=== PATIENT | male | born 1985 | race Caucasian/White ===

== ENCOUNTER 2017-01-02 20:12 | Observation (INO) | payer OTHER ==
[~2017-01-02] VITALS: Ht 188 cm; Wt 129.4 kg
[2017-01-02] MEDS ORDERED: SOD CHLORIDE 0.9% 500 ML IV STA (20:25)
[2017-01-02 20:34] LABS: BASOPHIL # 0.1 10^3/ul (0.0-0.1); BASOPHILS % 0.5 % (0.0-2.0); EOSINOPHILS # 0.2 10^3/ul (0.0-0.5); EOSINOPHILS % 1.5 % (0.0-7.0); HEMATOCRIT 46.5 % (42.0-52.0); HEMOGLOBIN 15.2 g/dl (14.0-18.0); LYMPHOCYTES # 4.1 10^3/ul (0.8-2.9); LYMPHOCYTES % 32.6 % (15.0-51.0); MEAN CORPUSCULAR HEMOGLOBIN 30.1 pg (29.0-33.0); MEAN CORPUSCULAR HGB CONC 32.7 g/dl (32.0-37.0); MEAN CORPUSCULAR VOLUME 92.1 fl (82.0-101.0); MONOCYTE # 0.8 10^3/ul (0.3-0.9); NEUTROPHIL # 7.4 10^3/ul (1.6-7.5); NEUTROPHILS % 58.9 % (39.0-77.0); PLATELET COUNT 348 10^3/UL (140-415); RED BLOOD COUNT 5.05 10^6/ul (4.70-6.10); RED CELL DISTRIBUTION WIDTH 12.2 % (11.5-14.5); WHITE BLOOD COUNT 12.6 10^3/ul (4.8-10.8)
[2017-01-02 20:47] LABS: INR 0.92; PROTIME 12.4 Sec (12.2-14.2)
[2017-01-02 20:48] LABS: PARTIAL THROMBOPLASTIN TIME 23.5 Sec (25.0-35.0)
[2017-01-02 20:54] LABS: CALCIUM 10.2 mg/dl (8.4-10.2); CREATININE 1.46 mg/dl (0.61-1.24); POTASSIUM 3.6 mmol/L (3.5-5.1)
[2017-01-02 21:05] LABS: TROPONIN-I 0.012 ng/ml (0.00-0.12)
--- NOTE | 2017-01-02 21:44 | ERA ---
ER Documentation Chief Complaint Date/Time DATE: 01/02/17 TIME: 21:38 Chief Complaint pt had a syncopal episode at 1930, with bradycardia , pt hit head HPI This is a 31-year-old male who had a myocardial infarction a month ago and had a stent placed in the proximal LAD in [place]. Patient was brought in for a syncopal episode. The patient states that he has had some chronic low back pain /sciatica that has been acting up for the past 4 days. The patient says he was having some pain when he got up to walk into another room in his house while he was walking he felt him have palpitations that he had a witnessed syncopal episode. The patient fell and hit his head on the wall and was unconscious for 1 minute. He woke up and felt back to normal. EMS came to pick him up and he had stable vital signs however shortly after loading him onto the gurney his heart rate slowly declined to 40 and he did not have a palpable blood pressure. Patient had an IV placed and fluids started in route his heart rate and blood pressure improved. Patient is on Plavix and aspirin and has a history of DVT in the past years ago. He said he never had any chest pain or shortness of breath, then or now ROS All systems reviewed and are negative except as per history of present illness. Allergies Allergies: Coded Allergies: No Known Allergy (Unverified , 01/02/17) PMhx/Soc History of Surgery: Yes (stent placement x 12/07) Hx Cardiac Disorders: Yes (htn, high cholesterol ) Hx Psychiatric Problems: No Hx Miscellaneous Medical Probl: No Hx Alcohol Use: No Hx Substance Use: Yes (medical marijuana) Hx Tobacco Use: No Smoking Status: Never smoker FmHx Family History: No coronary disease Physical Exam Vitals Vital Signs Date Time Temp Pulse Resp B/P Pulse Ox O2 Delivery O2 Flow Rate FiO2 01/02/17 20:22 65 16 122/66 99 Room Air 01/02/17 20:18 98.9 78 18 117/55 99 Physical Exam Const: Well-developed, well-nourished Head: Atraumatic, normocephalic Eyes: Normal Conjunctiva, PERRLA, EOMI, normal sclera, no nystagmus ENT: Normal External Ears, Nose and Mouth, moist mucus membranes. Neck: Full range of motion. No meningismus, no lymphadenopathy. Resp: Clear to auscultation bilaterally, no wheezing, rhonchi, rales Cardio: Regular rate and rhythm, heart rate 77, no murmurs, S1 S2 present Abd: Soft, non tender x 4, non distended. Normal bowel sounds, no guarding or rebound, no pulsitile abdominal masses or bruits Skin: No petechiae or rashes, no ecchymosis , no maculopapular rash Back: No midline or flank tenderness Ext: No cyanosis, or edema, FROM x 4, normal inspection, neurovascularly intact x 4 Neur: Awake and alert, STR 5/5 x 4, sensation intact x 4, no focal findings, cerebellum intact Psych: Normal Mood and Affect Result Diagram: 01/02/17201701/02/172017 Results 24 hrs Laboratory Tests Test 01/02/17 20:18 White Blood Count 12.610^3/ul Red Blood Count 5.0510^6/ul Hemoglobin 15.2g/dl Hematocrit 46.5% Mean Corpuscular Volume 92.1fl Mean Corpuscular Hemoglobin 30.1pg Mean Corpuscular Hemoglobin Concent 32.7g/dl Red Cell Distribution Width 12.2% Platelet Count 62024^3/UL Mean Platelet Volume 10.0fl Neutrophils % 58.9% Lymphocytes % 32.6% Monocytes % 6.0% Eosinophils % 1.5% Basophils % 0.5% Nucleated Red Blood Cells % 0.0/100WBC Neutrophils # 7.410^3/ul Lymphocytes # 4.110^3/ul Monocytes # 0.810^3/ul Eosinophils # 0.210^3/ul Basophils # 0.110^3/ul Nucleated Red Blood Cells # 0.010^3/ul Prothrombin Time 12.4Sec Prothrombin Time Ratio 1.0 INR International Normalized Ratio 0.92 Activated Partial Thromboplast Time 23.5Sec Sodium Level 135mmol/L Potassium Level 3.6mmol/L Chloride Level 103mmol/L Carbon Dioxide Level 28mmol/L Anion Gap 8 Blood Urea Nitrogen 21mg/dl Creatinine 1.46mg/dl Glucose Level 143mg/dl Calcium Level 10.2mg/dl Troponin I 0.012ng/ml Current Medications Medications (Trade) Dose Ordered Sig/Yanick Route PRN Reason Start Time Stop Time Status Last Admin Dose Admin Sodium Chloride (NS) 500 ml @ 500 mls/hr Q1H STAT IV 01/02/17 20:25 01/02/17 21:24 DC 01/02/17 20:38 Procedures/MDM EKG: Rate/Rhythm: Normal sinus rhythm, Q waves in lead V2 QRS, ST, QT: NORMAL [place], QRS, QT] Impression: Abnormal Patient's syncopal symptoms are unstable at this time and require inpatient workup. No evidence of PE or dissection at this time but occult ischemia or fatal dysrhythmia cannot be ruled out. PROCEDURE: CT Head without. CLINICAL INDICATION: Syncope. TECHNIQUE: The study was performed utilizing a multi-slice, multidetector CT scanner. Direct spiral 1 mm axial sections were obtained through the head without the use of intravenous contrast material. 1 or more of the following dose reduction techniques were utilized: Automated exposure control, adjustment of the mA and/or kV according to patient's size, iterative reconstruction technique. Coronal and sagittal reformations were obtained. The images were reviewed on a PACS workstation. RADIATION DOSE: CTDIvol: 42.0 mGy DLP: A 10.3 mGy-cm COMPARISON: No prior studies are available for comparison. FINDINGS: There is no intracranial hemorrhage, extra-axial fluid collection, mass lesion, midline shift or hydrocephalus. The ventricles, sulci and cisterns are within normal limits. The white matter is unremarkable. The wilson-white matter differentiation is preserved. The basal cisterns are patent. The midline structures are intact. The orbits, calvarium and extracranial soft tissues are normal in appearance. The visualized paranasal sinuses, mastoid air cells and middle ear cavities are normally aerated. IMPRESSION: 1. No acute intracranial abnormality. No intracranial hemorrhage, extra-axial fluid collection, mass lesion or hydrocephalous. RPTAT: HGAS .Merrill Edmond MD, Date Time Electronically viewed and signed by .Merrill Edmond MD, MD on 01/02/2017 22: 30 .S/ CC: JANESSA STEWART DO PROCEDURE: XR Chest. CLINICAL INDICATION: Seizure. TECHNIQUE: Single frontal view of the chest. COMPARISON: None. FINDINGS: Cardiomegaly with pulmonary vascular congestion. Atherosclerotic calcifications in the thoracic aorta. Transcutaneous cardiac pacing pad over the left chest. The lungs are clear. No signs of pleural fluid or pneumothorax are seen. The osseous structures and soft tissues are unremarkable. IMPRESSION: Pulmonary vascular congestion. RPTAT: [facility] Physician Ketan Date Time Electronically viewed and signed by Parviz Irving Physician on 01/02/2017 22:14 RS/ CC: JANESSA STEWART DO Patient's syncopal symptoms are unstable at this time and require inpatient workup. No evidence of PE or dissection at this time but occult ischemia or fatal dysrhythmia cannot be ruled out. Departure Diagnosis: Primary Impression: Syncope Qualified Code: R55 - Syncope, unspecified syncope type Condition: Stable JANESSA STEWART DO Jan 02, 2017 21:44
--- NOTE | 2017-01-02 22:14 | RADRPT ---
PROCEDURE: XR Chest. CLINICAL INDICATION: Seizure. TECHNIQUE: Single frontal view of the chest. COMPARISON: None. FINDINGS: Cardiomegaly with pulmonary vascular congestion. Atherosclerotic calcifications in the thoracic aort a. Transcutaneous cardiac pacing pad over the left chest. The lungs are clear. No signs of pleural f luid or pneumothorax are seen. The osseous structures and soft tissues are unremarkable. IMPRESSION: Pulmonary vascular congestion. RPTAT: [facility] Physician Ketan Date Time Electronically viewed and signed by Physician Ketan on 01/02/2017 22:14 RS/
--- NOTE | 2017-01-02 22:30 | RADRPT ---
PROCEDURE: CT Head without. CLINICAL INDICATION: Syncope. TECHNIQUE: The study was performed utilizing a multi-slice, multidetector CT scanner. Direct spira l 1 mm axial sections were obtained through the head without the use of intravenous contrast materia l. 1 or more of the following dose reduction techniques were utilized: Automated exposure control, adjustment of the mA and/or kV according to patient's size, iterative reconstruction technique. Co mehdi and sagittal reformations were obtained. The images were reviewed on a PACS workstation. RADIATION DOSE: CTDIvol: 42.0 mGyDLP: A 10.3 mGy-cm COMPARISON: No prior studies are available for comparison. FINDINGS: There is no intracranial hemorrhage, extra-axial fluid collection, mass lesion, midline shift or hyd rocephalus. The ventricles, sulci and cisterns are within normal limits. The white matter is unrem arkable. The wilson-white matter differentiation is preserved. The basal cisterns are patent. The m idline structures are intact. The orbits, calvarium and extracranial soft tissues are normal in [place]. The visualized paranasal sinuses, mastoid air cells and middle ear cavities are normally ae rated. IMPRESSION: 1. No acute intracranial abnormality. No intracranial hemorrhage, extra-axial fluid collection, ma ss lesion or hydrocephalous. RPTAT: HGAS .Merrill Edmond MD, MD Date Time Electronically viewed and signed by .Merrill Edmond MD, MD on 01/02/2017 22:30 .S/
[2017-01-02] MEDS ORDERED: ACETAMINOPHEN 325 MG TAB PO PRN (23:30)
[2017-01-02] MEDS ORDERED: ONDANSETRON 4 MG INJ IV PRN (23:30)
[2017-01-03] VITALS (11 sets, daily range): BP systolic 107–142; BP diastolic 55–78; PULSE 39–71; RESP 18–19; Ht 188 cm; Wt 129.4 kg
[2017-01-03] MEDS ORDERED: CARV3.1260 PO (00:18)
[2017-01-03] MEDS ORDERED: OMEG1CAP17 PO (00:18)
[2017-01-03] MEDS ORDERED: ASPI81TA3 PO (00:18)
[2017-01-03] MEDS ORDERED: CHOL200078 PO (00:18)
[2017-01-03] MEDS ORDERED: NIT4 SL (00:18)
[2017-01-03] MEDS ORDERED: LISI-313 PO (00:18)
[2017-01-03] MEDS ORDERED: FENO145T19 PO (00:18)
[2017-01-03] MEDS ORDERED: ATOR40TA68 PO (00:18)
[2017-01-03] MEDS ORDERED: CLOP75TA4 PO (00:18)
[2017-01-03] MEDS ORDERED: ONDANSETRON 4 MG INJ IV PRN (01:30)
[2017-01-03] MEDS ORDERED: ACETAMINOPHEN 325 MG TAB PO PRN (01:30)
[2017-01-03] MEDS ORDERED: SOD CHLORIDE 0.9% 1,000 ML IV ONE (01:30)
[2017-01-03] MEDS ORDERED: SOD CHLORIDE 0.9% 1,000 ML IV SCH (01:30)
[2017-01-03] MEDS: HYDROCODONE/APAP (5/325) TAB PO PRN ×2 (01:59→20:58)
[2017-01-03] MEDS ORDERED: IOHEXOL 100 ML ONE (02:11)
[2017-01-03] MEDS ORDERED: SOD CHLORIDE 0.9% 100 ML ONE (02:11)
[2017-01-03 03:12] LABS: BASOPHIL # 0.1 10^3/ul (0.0-0.1); BASOPHILS % 0.5 % (0.0-2.0); EOSINOPHILS # 0.2 10^3/ul (0.0-0.5); EOSINOPHILS % 1.4 % (0.0-7.0); HEMATOCRIT 41.8 % (42.0-52.0); HEMOGLOBIN 14.2 g/dl (14.0-18.0); LYMPHOCYTES # 3.4 10^3/ul (0.8-2.9); LYMPHOCYTES % 31.6 % (15.0-51.0); MEAN CORPUSCULAR HEMOGLOBIN 31.3 pg (29.0-33.0); MEAN CORPUSCULAR VOLUME 92.1 fl (82.0-101.0); MONOCYTE # 0.8 10^3/ul (0.3-0.9); MONOCYTES % 7.6 % (0.0-11.0); NEUTROPHIL # 6.2 10^3/ul (1.6-7.5); NEUTROPHILS % 58.5 % (39.0-77.0); PLATELET COUNT 316 10^3/UL (140-415); RED BLOOD COUNT 4.54 10^6/ul (4.70-6.10); WHITE BLOOD COUNT 10.6 10^3/ul (4.8-10.8)
--- NOTE | 2017-01-03 04:09 | RADRPT ---
PROCEDURE: CT angiogram of the chest with contrast. CLINICAL INDICATION: Chest pain. TECHNIQUE: CT angiogram of the chest was obtained using a multi-detector high-resolution CT. Con tiguous axial images were obtained during the dynamic injection of 90 cc of Omnipaque 350 intravenou s contrast. Coronal and sagittal reformatted images were obtained. 3-D reformatted images were als o obtained. Images were reviewed on a PACS workstation. One or more of the following dose reduction techniques were used: - Automated exposure control. - Adjustment of the mA and/or kV according to patient size. - Use of iterative reconstruction technique. Exam CTD/vol = 20.21 mGy. Total exam DLP = 989.03 mGy-cm. COMPARISON: None. FINDINGS: The main pulmonary artery followed to the segmental divisions are well opacified. There is no filli ng defect or evidence of pulmonary embolism. The heart is normal in size. There is no pericardial thickening or effusion. The aorta is diffusely small in size measuring 1.5 cm at the aortic arch an d 1.4 cm at the diaphragmatic hiatus. There is no evidence of aortic aneurysm or dissection. There is no evidence of chest wall mass. The visualized thyroid is unremarkable. There are no enla rged axillary lymph nodes. There are no enlarged mediastinal or hilar lymph nodes by CT criteria. There is no parenchymal nodule or consolidation. There is no pleural effusion. There is bilateral peribronchial thickening. Limited evaluation of the upper abdomen is unremarkable. IMPRESSION: No evidence of pulmonary embolism or aortic dissection. Congenitally small aorta. Bilateral peribronchial thickening compatible with bronchitis. .Wilfred Tony MD, MD Date Time Electronically viewed and signed by .Wilfred Tony MD, MD on 01/03/2017 04:09 .T/
[2017-01-03 04:11] LABS: TROPONIN-I 0.027 ng/ml (0.00-0.12)
[2017-01-03 04:21] LABS: CK-MB 0.81 ng/ml (0.0-2.4)
[2017-01-03 04:33] LABS: ALBUMIN 3.8 g/dl (3.3-4.9); ALBUMIN/GLOBULIN RATIO 1.26; CALCIUM 9.5 mg/dl (8.4-10.2); CREATININE 1.18 mg/dl (0.61-1.24); MAGNESIUM 1.9 mg/dl (1.7-2.5); POTASSIUM 4.1 mmol/L (3.5-5.1); TOTAL PROTEIN 6.8 g/dl (6.1-8.1)
[2017-01-03 05:03] LABS: THYROID STIMULATING HORMONE 2.05 MIU/L (0.465-4.680)
[2017-01-03 07:48] LABS: BARBITURATES Negative (NEGATIVE); BENZODIAZEPINES Negative (NEGATIVE); CANNABINOIDS Positive (NEGATIVE); COCAINE Negative (NEGATIVE); OPIATES Negative (NEGATIVE)
[2017-01-03] MEDS: CHOLECALCIFEROL 2,000 UNIT CAP PO SCH (08:14)
[2017-01-03] MEDS: ASPIRIN 81 MG TAB PO SCH (08:14)
[2017-01-03] MEDS: FENOFIBRATE 145 MG TAB PO SCH (08:15)
[2017-01-03] MEDS: FISH OIL 1,000 MG CAP PO SCH (08:15)
[2017-01-03 08:57] LABS: TROPONIN-I 0.02 ng/ml (0.00-0.12)
[2017-01-03 09:15] LABS: CK-MB 1.02 ng/ml (0.0-2.4)
--- NOTE | 2017-01-03 11:34 | CONS ---
Date/Time of Note Date/Time of Note DATE: 01/03/17 TIME: 11:20 Assessment/Plan Assessment/Plan Chief Complaint/Hosp Course 1) Syncope of uncertain etiology: DDX includes arrhythmia, vascular or neuro cause 2) CAD 3) coronary angioplasty status 4) Small aorta 5) Ex smoker 6) HLP 7) Sinusbradycardia Problems: Additional Assessment/Plan 1) telemetry 2) echo 3) carotid duplex 4) records from [place] 5) may need outpatient event recorder dw patient and family Consultation Date/Type/Reason Admit Date/Time Jan 02, 2017 at 23:24 Date of Consultation: Jan 03, 2017 Type of Consultation: cv Reason for Consultation syncope Referring Provider: KOBI IYER Hx of Present Illness patient yesterday after stretching his back and getting up, became lightheaded and dizzy and went to the ground. witnessed to have convulsions while on ground. also experienced near syncope in the ED with bradycardia in the 40s and hypotension, no convulsions described this time. patient missed asa and statin dose yesterday. denies chest pain, exertional symptoms or sob. Respiratory: no complaints Cardiovascular: no complaints Gastrointestinal: no complaints Musculoskeletal: no complaints Skin: no complaints Neurologic: syncope Endocrine: no complaints Past Medical History Medical History: coronary artery disease, high cholesterol Past Surgical History Past Surgical Hx: angioplasty Family History Significant Family History: hypertension Social History Smoking Status: Former smoker Exam/Review of Systems Vital Signs Vitals Vital Signs Date Time Temp Pulse Resp B/P Pulse Ox O2 Delivery O2 Flow Rate FiO2 01/03/17 08:46 51 01/03/17 06:16 98.3 19 116/64 99 108/55 107/59 01/03/17 00:56 Room Air Intake and Output 01/02/17 01/02/17 01/03/17 15:00 23:00 07:00 Intake Total 1250 ml Balance 1250 ml Exam Constitutional: alert, oriented Head: atraumatic, normocephalic ENMT: nl external ears & nose Neck: supple Respiratory: clear to auscultation Cardiovascular: regular rate and rhythm Gastrointestinal: soft Musculoskeletal: nl extremities to inspection Extremities: normal pulses Neurological: YARN EXAMINER SKEINS II-XII intact Results Result Diagram: 01/03/17 0303 01/03/17 0303 Results 24 hrs Laboratory Tests Test 01/02/17 20:18 01/03/17 01:10 01/03/17 02:50 01/03/17 03:03 White Blood Count 12.6 H 10.6 Red Blood Count 5.05 4.54 L Hemoglobin 15.2 14.2 Hematocrit 46.5 41.8 L Mean Corpuscular Volume 92.1 92.1 Mean Corpuscular Hemoglobin 30.1 31.3 Mean Corpuscular Hemoglobin Concent 32.7 34.0 Red Cell Distribution Width 12.2 12.0 Platelet Count 348 316 Mean Platelet Volume 10.0 10.0 Neutrophils % 58.9 58.5 Lymphocytes % 32.6 31.6 Monocytes % 6.0 7.6 Eosinophils % 1.5 1.4 Basophils % 0.5 0.5 Nucleated Red Blood Cells % 0.0 0.0 Neutrophils # 7.4 6.2 Lymphocytes # 4.1 H 3.4 H Monocytes # 0.8 0.8 Eosinophils # 0.2 0.2 Basophils # 0.1 0.1 Nucleated Red Blood Cells # 0.0 0.0 Prothrombin Time 12.4 Prothrombin Time Ratio 1.0 INR International Normalized Ratio 0.92 Activated Partial Thromboplast Time 23.5 L Sodium Level 135 133 L Potassium Level 3.6 4.1 Chloride Level 103 109 Carbon Dioxide Level 28 23 Anion Gap 8 5 L Blood Urea Nitrogen 21 H 18 Creatinine 1.46 H 1.18 Glucose Level 143 101 # Calcium Level 10.2 9.5 Troponin I 0.012 0.027 B-Type Natriuretic Peptide 402 H Urine Opiates Screen Negative Urine Barbiturates Negative Urine Amphetamines Screen Negative Urine Benzodiazepines Screen Negative Urine Cocaine Screen Negative Urine Cannabinoids Positive Magnesium Level 1.9 Total Bilirubin 0.0 L Direct Bilirubin 0.00 Indirect Bilirubin 0.0 Aspartate Amino Transf (AST/SGOT) 23 Alanine Aminotransferase (ALT/SGPT) 30 Alkaline Phosphatase 48 Creatine Kinase 108 Creatine Kinase Index 0.8 Creatinine Kinase MB (Mass) 0.81 Total Protein 6.8 Albumin 3.8 Globulin 3.00 Albumin/Globulin Ratio 1.26 Thyroid Stimulating Hormone (TSH) 2.050 Free Thyroxine 1.33 Test 01/03/17 07:57 Creatine Kinase 100 Creatine Kinase Index 1.0 Creatinine Kinase MB (Mass) 1.02 Troponin I 0.020 Imaging Free Text/Dictation EKG: Sinusrhythm, no signficant changes TEle:Sinusbrady w myke of 41 without symptoms Medications Medications Current Medications Acetaminophen/ Hydrocodone Bitart ([place] (5/325)) 1 tab Q6H PRN PO PAIN Last administered on 01/03/17 01:59; Admin Dose 1 TAB; Start 01/03/17 at 01:30 Acetaminophen (Tylenol Tab) 650 mg Q6H PRN PO PAIN AND OR ELEVATED TEMP; Start 01/03/17 at 01:30 Ondansetron HCl (Zofran Inj) 4 mg Q6H PRN IV NAUSEA AND/OR VOMITING; Start at 01:30 Aspirin (Aspirin) 81 mg DAILY PO Last administered on 01/03/17 08:14; Admin Dose 81 MG; Start 01/03/17 at 09:00 Atorvastatin Calcium (Lipitor) 40 mg HS PO ; Start 01/03/17 at 21:00 Cholecalciferol (Vitamin D) 2,000 unit DAILY PO Last administered on 08:14; Admin Dose 2,000 UNIT; Start 01/03/17 at 09:00 Fenofibrate (Tricor) 145 mg DAILY PO Last administered on 01/03/17 08:15; Admin Dose 145 MG; Start 01/03/17 at 09:00 Fish Oil (Fish Oil) 1,000 mg DAILY PO Last administered on 01/03/17 08:15; Admin Dose 1,000 MG; Start 01/03/17 at 09:00 Clopidogrel Bisulfate (plaVIX) 75 mg DAILY PO ; Start 01/03/17 at 11:30; Status KEZIA SALDANA MD Jan 03, 2017 11:31
[2017-01-03] MEDS: CLOPIDOGREL 75 MG TAB PO SCH (12:05)
--- NOTE | 2017-01-03 12:11 | RADRPT ---
Echocardiogram Report Patient Name: JESSICA SHAY Gender: Male Date: 1985 Study Date: 03-Jan-2017 Life Educator: KARINA Location: I Ref. Physician: ALEXUS IYER Quality: Technically Difficult Study Procedures: Transthoracic echocardiogram with 2D, M-Mode, and Doppler examination, no subcostal images. Indications: Syncope, history of stent. 2D/M Mode Doppler Measurement Value Normal Ranges Measurement Value Normal Ranges AoR Diam MM 2.7 cm AV Peak Nick 1.1 m/sec ACS MM 2.2 cm AV Peak PG 4.4 mmHg LVIDd 2D 4.7 3.5 - 5.6 cm LVOT Peak Nick 1.0 m/sec LVIDs 2D 3.1 2.1 - 4.1 cm LVOT Peak PG 3.9 mmHg LVPWd 2D 1.4 0.6 - 1.1 cm MV E Peak Nick 0.9 m/sec IVSd 2D 1.3 0.6 - 1.1 cm MV A Peak Nick 0.3 m/sec EDV 2D 104.0 cm3 MV E/A 3.3 ESV 2D 28.7 cm3 MV Decel Time 220 msec LA Dimen 2D 3.8 2.3 - 4.0 cm MV Decel [place] 4 MV E/A 3.3 PV Peak Nick 1.0 m/sec PV Peak PG 4.0 mmHg Findings Left Ventricle: Normal left ventricular systolic function. Normal left ventricular cavity size. Mild concentric left ventricular hypertrophy. Ejection fraction is visually estimated at 65 %. Tissue Doppler/Mitral Doppler indices are within normal limits. E/E`=6. Right Ventricle: Normal right ventricular size. Left Atrium: The left atrium is normal in size. Right Atrium: The right atrium is normal in size. Atrial Septum: Normal atrial septum. Mitral Valve: Normal appearance of the mitral valve. No mitral valve regurgitation is seen. Aortic Valve: Normal appearance of the aortic valve. No significant aortic stenosis or insufficiency. Tricuspid Valve: Normal appearance of the tricuspid valve. No evidence of tricuspid regurgitation. Pulmonic Valve: Normal pulmonic valve appearance. No evidence of pulmonic regurgitation. Pericardium: Normal pericardium with no significant pericardial effusion. No pleural effusion noted. Aorta: Normal aortic root. IVC: The IVC is not well visualized. Pulmonary Artery: Normal pulmonary artery size. Conclusions 1.Normal left ventricular systolic function. Normal left ventricular cavity size. Mild concentric left ventricular hypertrophy. Ejection fraction is visually estimated at 65 %. Tissue Doppler/Mitral Doppler indices are within normal limits. E/E`=6. 2.Normal appearance of the mitral valve. No mitral valve regurgitation is seen. 3.Normal appearance of the aortic valve. No significant aortic stenosis or insufficiency. 4.Normal appearance of the tricuspid valve. No evidence of tricuspid regurgitation. 5.Normal pulmonic valve appearance. No evidence of pulmonic regurgitation. 6.The IVC is not well visualized. Electronically Signed By: Shadi Palafox 03-Jan-2017 12:10:30 -0700 Patient Name: JESSICA SHAY Study Date: 03-Jan-2017 [id number]
--- NOTE | 2017-01-03 13:02 | HP ---
Date/Time of Note Date/Time of Note DATE: 01/03/17 TIME: 13:01 Assessment/Plan VTE Prophylaxis VTE Prophylaxis Intervention: SCD's Lines/Catheters IV Catheter Type (from [facility]): Saline Lock Urinary Cath still in place: No Assessment/Plan Assessment/Plan 31-year-old male with: 1. Syncopal episode, unclear etiology, there is also reported of possible seizure activity. Patient has no previous history of seizures but has been reporting episodes of palpitations that requires him to almost vagal from what he is describing for the symptoms to go away and also episodes where he skips beats as he describes it. He is on telemetry being monitored. Cardiology is following. 2D echocardiogram within normal. Electrolytes stable. Cardiac enzymes negative. We are holding all beta-blockers and blood pressure medications. Orthostatics negative this morning. CTA chest negative for pulmonary embolus or dissection. 2. Episode of bradycardia with heart rate down to 30s, discontinue beta blockers. Continue to observe. Thyroid function testing within normal. Carotid ultrasound pending. 3. Coronary artery disease, status post stent placement approximately 5 weeks ago. Patient back on aspirin and Plavix. 4. Hyperlipidemia: Continue statin therapy Prophylaxis: SCDs to lower extremity for DVT prophylaxis, Pepcid for GI prophylaxis Disposition: Monitoring for any arrhythmias, replete electrolytes, cardiology following. HPI/ROS Admit Date/Time Admit Date/Time Jan 02, 2017 at 23:24 Hx of Present Illness Chief complaint: Syncopal episode History of presenting illness: This is a 31-year-old male, with coronary artery disease, early onset, status post stenting of coronary lesion 11/25/16 in [place], compliant with medication, reports episodes of palpitations but also feels that he is skipping a beat, had a syncopal episode yesterday while he was stretching and was brought to the emergency department by family. According to the family after the patient lost consciousness he had generalized shaking that seems to be resembling seizures, this lasted for 10 seconds, when the patient came to he had no recollection of the event but did recognize his surroundings. No bowel or bladder incontinence. He denies headache, chest pains, he has been having nausea in the morning on and off. He denies diaphoresis or shortness of breath. He has been complaining of severe back pain that has been worsening. He was noted to have bradycardic episode with heart rate down to 39, he is blood pressure was maintained throughout here but apparently when he dropped to heart rates of 40s his blood pressure did drop at home and it is around the time he lost consciousness. All his blood pressure meds and beta blockers have been held on admission. 2D echocardiogram is ordered. He is ruled out for acute coronary syndrome, cardiology evaluation ongoing, carotid Dopplers ordered. Due to severe pain in his back with radiation down his lower extremity consistent with sciatica, MRI of the thoracic and lumbar spine has been ordered. Patient is admitted to telemetry close monitoring. CAT scan of the brain is negative as the patient may have hit his head when he fell. Will order MRI brain and EEG if needed. So far no episode of seizure reported or witnessed during the hospitalization ROS Constitutional: nausea Eyes: no complaints ENT: no complaints Respiratory: no complaints Cardiovascular: other (Arrhythmias, patient reports that sometimes he feels like his heart is skipping beats), palpitations Gastrointestinal: no complaints Genitourinary: no complaints Musculoskeletal: no complaints Skin: no complaints Neurologic: syncope Endocrine: no complaints Lymphatic: no complaints PMH/Family/Social Past Medical History Medical History: coronary artery disease, high cholesterol Past Surgical History Past Surgical Hx: angioplasty Social History Alcohol Use: none Smoking Status: Former smoker Drug Use: marijuana (Daily user and used to be heavy user) Exam/Review of Systems Vital Signs Vitals Vital Signs Date Time Temp Pulse Resp B/P Pulse Ox O2 Delivery O2 Flow Rate FiO2 01/03/17 12:44 55 01/03/17 11:27 98.1 18 121/72 98 01/03/17 00:56 Room Air Intake and Output 01/02/17 01/02/17 01/03/17 15:00 23:00 07:00 Intake Total 1250 ml Balance 1250 ml Exam Constitutional: alert, oriented, other (Obese), well developed Respiratory: clear to auscultation, normal air movement Cardiovascular: nl pulses, regular rate and rhythm Gastrointestinal: non-tender, soft Musculoskeletal: nl extremities to inspection Extremities: normal pulses, other (No edema, clubbing or cyanosis) Neurological: SACK CLEANER II-XII intact, nl mental status, nl speech, nl strength Labs Result Diagram: 01/03/1730201/03/17302 Medications Medications Current Medications Acetaminophen/ Hydrocodone Bitart (Stephan (5/325)) 1 tab Q6H PRN PO PAIN Last administered on 01/03/17 01:59; Admin Dose 1 TAB; Start 01/03/17 at 01:30 Acetaminophen (Tylenol Tab) 650 mg Q6H PRN PO PAIN AND OR ELEVATED TEMP; Start 01/03/17 at 01:30 Ondansetron HCl (Zofran Inj) 4 mg Q6H PRN IV NAUSEA AND/OR VOMITING; Start at 01:30 Aspirin (Aspirin) 81 mg DAILY PO Last administered on 01/03/17 08:14; Admin Dose 81 MG; Start 01/03/17 at 09:00 Atorvastatin Calcium (Lipitor) 40 mg HS PO ; Start 01/03/17 at 21:00 Cholecalciferol (Vitamin D) 2,000 unit DAILY PO Last administered on 08:14; Admin Dose 2,000 UNIT; Start 01/03/17 at 09:00 Fenofibrate (Tricor) 145 mg DAILY PO Last administered on 01/03/17 08:15; Admin Dose 145 MG; Start 01/03/17 at 09:00 Fish Oil (Fish Oil) 1,000 mg DAILY PO Last administered on 01/03/17 08:15; Admin Dose 1,000 MG; Start 01/03/17 at 09:00 Clopidogrel Bisulfate (plaVIX) 75 mg DAILY PO Last administered on 01/03/17 12:05; Admin Dose 75 MG; Start 01/03/17 at 11:30 Procedures Procedures PROCEDURE: CT angiogram of the chest with contrast. CLINICAL INDICATION: Chest pain. TECHNIQUE: CT angiogram of the chest was obtained using a multi-detector high -resolution CT. Contiguous axial images were obtained during the dynamic injection of 90 cc of Omnipaque 350 intravenous contrast. Coronal and sagittal reformatted images were obtained. 3-D reformatted images were also obtained. Images were reviewed on a PACS workstation. One or more of the following dose reduction techniques were used: - Automated exposure control. - Adjustment of the mA and/or kV according to patient size. - Use of iterative reconstruction technique. Exam CTD/vol = 20.21 mGy. Total exam DLP = 989.03 mGy-cm. COMPARISON: None. FINDINGS: The main pulmonary artery followed to the segmental divisions are well opacified. There is no filling defect or evidence of pulmonary embolism. The heart is normal in size. There is no pericardial thickening or effusion. The aorta is diffusely small in size measuring 1.5 cm at the aortic arch and 1.4 cm at the diaphragmatic hiatus. There is no evidence of aortic aneurysm or dissection. There is no evidence of chest wall mass. The visualized thyroid is unremarkable. There are no enlarged axillary lymph nodes. There are no enlarged mediastinal or hilar lymph nodes by CT criteria. There is no parenchymal nodule or consolidation. There is no pleural effusion. There is bilateral peribronchial thickening. Limited evaluation of the upper abdomen is unremarkable. IMPRESSION: No evidence of pulmonary embolism or aortic dissection. Congenitally small aorta. Bilateral peribronchial thickening compatible with bronchitis. .Wilfred Tony MD, Date Time Electronically viewed and signed by .Wilfred Tony MD, MD on 01/03/2017 04:09 PROCEDURE: CT Head without. CLINICAL INDICATION: Syncope. TECHNIQUE: The study was performed utilizing a multi-slice, multidetector CT scanner. Direct spiral 1 mm axial sections were obtained through the head without the use of intravenous contrast material. 1 or more of the following dose reduction techniques were utilized: Automated exposure control, adjustment of the mA and/or kV according to patient's size, iterative reconstruction technique. Coronal and sagittal reformations were obtained. The images were reviewed on a PACS workstation. RADIATION DOSE: CTDIvol: 42.0 mGy DLP: A 10.3 mGy-cm COMPARISON: No prior studies are available for comparison. FINDINGS: There is no intracranial hemorrhage, extra-axial fluid collection, mass lesion, midline shift or hydrocephalus. The ventricles, sulci and cisterns are within normal limits. The white matter is unremarkable. The wilson-white matter differentiation is preserved. The basal cisterns are patent. The midline structures are intact. The orbits, calvarium and extracranial soft tissues are normal in appearance. The visualized paranasal sinuses, mastoid air cells and middle ear cavities are normally aerated. IMPRESSION: 1. No acute intracranial abnormality. No intracranial hemorrhage, extra-axial fluid collection, mass lesion or hydrocephalous. RPTAT: HGAS .Merrill Edmond MD, MD Date Time Electronically viewed and signed by .Merrill Edmond MD, MD on 01/02/2017 22: 30 PROCEDURE: XR Chest. CLINICAL INDICATION: Seizure. TECHNIQUE: Single frontal view of the chest. COMPARISON: None. FINDINGS: Cardiomegaly with pulmonary vascular congestion. Atherosclerotic calcifications in the thoracic aorta. Transcutaneous cardiac pacing pad over the left chest. The lungs are clear. No signs of pleural fluid or pneumothorax are seen. The osseous structures and soft tissues are unremarkable. IMPRESSION: Pulmonary vascular congestion. RPTAT: [facility] Physician Ketan Date Time Electronically viewed and signed by Physician Ketan on 01/02/2017 22:14 LICHA/ KOBI IYER Jan 03, 2017 13:02
--- NOTE | 2017-01-03 13:28 | RADRPT ---
PROCEDURE: Carotid ultrasound CLINICAL INDICATION: Syncope, carotid bruits TECHNIQUE: Su scale, color doppler, spectral doppler ultrasound of the bilateral carotid and claudine tebral arteries. This study indirectly references the measurement of the distal ICA diameter as the denominator for s tenosis measurement. Validated velocity measurements with angiographic measurements, velocity criter ia are extrapolated from diameter data as defined by: *Cartoid artery stenosis: su-scale and Doppl er US diagnosis. Society of Radiologists in Ultrasound Consensus Conference. Radiology 2003; 229: 34 0-346. SRU Consensus Conference Criteria for the Diagnosis of Carotid Artery Stenosis* Degree of Stenosis, % ICA PSV, cm/sec Plaque Estimate, % ICA/CCA PSV Ratio Normal <125 None <2.0 <50 <125 <50 <2.0 50 69 125-230 >50 2.0-4.0 >70 but less than near occlusion >230 >50 <4.0 Near occlusion High, low, or undetectable Visible Variable Total occlusion Undetectable Visible, no detectable lumen Not applicable COMPARISON: No prior studies are available for comparison. FINDINGS: Location Right CCA72 - 158 cm/sec Prox ICA 51 cm/sec Mid ICA77 cm/sec Dist ICA69 cm/sec TMQ676 cm/sec ICA/CCA1.1 Left FBT568 - 159 cm/sec Prox ICA 77 cm/sec Mid ICA77 cm/sec Dist ICA55 cm/sec UIK530 cm/sec ICA/CCA0.7 Plaque burden: No significant plaque is seen. Antegrade flow is seen within the vertebral arteries bilaterally. IMPRESSION: No evidence of a hemodynamically significant carotid stenosis. RPTAT: AADD .Bereket Cuevas MD, Date Time Electronically viewed and signed by .Bereket Cuevas MD, MD on 01/03/2017 13:28 .B/
--- NOTE | 2017-01-03 17:42 | RADRPT ---
PROCEDURE: MRI thoracic spine without contrast CLINICAL INDICATION: Back pain, primarily right-sided. TECHNIQUE: An MRI of the thoracic spine was performed on a [employer] 3 hsarmin scanner utilizing the follow ing sequences: Sagittal and axial T1 weighted, sagittal and axial T2 weighted, coronal T2-weighted, and sagittal T2-weighted with fat saturation. COMPARISON: None. FINDINGS: There is a normal kyphosis of the thoracic spine. No vertebral body subluxation is seen. The verte bral bodies are normal in height and signal intensity. The thoracic cord is normal in signal intens ity in caliber at all levels. At T3-4, there is mild disc space narrowing. A small right paracentral disc bulges present, measurin g less than 2 mm. The central canal and foramina appear adequately patent. There is mild facet arthr opathy. At T4-5, there is mild disc space narrowing. A right paracentral disc protrusion is present, measuri ng 3 mm. This minimally effaces the thecal sac without central stenosis. Mild cord displacement is s een. There is mild right and mild to moderate left facet arthropathy. The foramen remain adequately patent. At T5-6, the disc is grossly normal in height but diminished in T2-weighted signal intensity. No sig nificant disc bulge protrusion is seen. There is mild bilateral facet arthropathy without central st enosis or foraminal narrowing. At T6-7, the disc is grossly normal in height and signal intensity. There is a small posterior disc bulge without central stenosis. Mild to moderate facet arthropathy is evident, which minimally narro ws the foramen. At T7-8, there is mild discogenic disease. A small disc bulge is present. Mild to moderate facet art hropathy is noted. The central canal and foramen are adequately patent. At T8-9, the disc is mildly decreased in height and diffusely decreased in T2-weighted signal intens ity. There is a small disc bulge without central stenosis. Mild to moderate facet arthropathy is see n without significant foraminal stenosis. At T9-10 and T10-11, the discs are normal in appearance. The central canal is adequately patent at b oth levels. There is evidence of mild facet arthropathy at T9-10 and mild to moderate at T10-11. No significant foraminal narrowing is seen. At T11-12, the disc is normal in height and grossly normal in signal intensity. Mild bulging of the posterior annulus together with mild to moderate facet arthropathy results in mild central stenosis. There is minimal left foraminal narrowing. At T12-L1, the disc is grossly normal in height and signal intensity. No significant disk bulge or protrusion is seen. The central canal and foramina are adequately patent. IMPRESSION: 1. Multilevel mild discogenic disease. Multilevel small posterior disc bulges are present as outlin ed above. 2. At T4-5, there is a right paracentral disc protrusion minimally displacing the cord without sign ificant central canal stenosis. 3. At T11-12, there is mild central stenosis related primarily to facet arthropathy. 4. Multilevel facet arthropathy, which results in minimal foraminal narrowing at several levels as described above. RPTAT: HJAH .Bettye Henry MD, Date Time Electronically viewed and signed by .Bettye Henry MD, on 01/03/2017 17:42 .H/
--- NOTE | 2017-01-03 17:47 | RADRPT ---
PROCEDURE: MRI lumbar spine CLINICAL INDICATION: Back pain. TECHNIQUE: An MRI of the lumbar spine was performed on a GE 3 sharmin scanner utilizing the followin g sequences: Sagittal T1 weighted, sagittal and dual echo axial T2 weighted, and sagittal T2 weighte d with fat saturation. COMPARISON: None. FINDINGS: There is a normal lordosis of the lumbar spine. No vertebral body subluxation is evident. The verteb ral bodies are normal in height and signal intensity. The conus medullaris is visible at the upper L1 level, and is normal in appearance. L1 - L2: The disc is normal in height and grossly normal in T2-weighted signal intensity. There is a small Schmorl's node. No significant disc bulge or protrusion is seen. The central canal and joshua edwin are adequately patent. L2 - L3: The disk is normal in appearance. Small Schmorl's nodes are identified. The central canal and foramina are adequately patent. L3 - L4: The disk is normal in appearance. Small Schmorl's nodes are identified. The central canal and foramina are adequately patent. L4 - L5: The disk is normal in appearance. The central canal and foramina are adequately patent. L5 - S1: There is moderate disc space narrowing and decreased T2-weighted signal intensity within t he disc. There is a posterior disc bulge measuring approximately 2.5 mm. There is no significant the mercedes sac effacement. Mild facet arthropathy is identified. The central canal and foramina are adequat prudence patent. IMPRESSION: 1. Moderate discogenic disease at L5-S1 with a small disc bulge but no central stenosis or foramina l narrowing. 2. Mild facet arthropathy bilaterally at L5-S1 without foraminal stenosis. 3. Multilevel small Schmorl's node formation. RPTAT: HJAH .Bettye Henry MD, MD Date Time Electronically viewed and signed by .Bettye Henry MD, MD on 01/03/2017 17:47 .H/
[2017-01-03] MEDS: ATORVASTATIN 40 MG TAB PO SCH (20:57)
[2017-01-04] VITALS (11 sets, daily range): BP systolic 112–134; BP diastolic 65–86; PULSE 45–93; RESP 16–20
[2017-01-04 07:18] LABS: CALCIUM 9.3 mg/dl (8.4-10.2); CREATININE 1.36 mg/dl (0.61-1.24); POTASSIUM 4.1 mmol/L (3.5-5.1)
[2017-01-04 08:03] LABS: PHOSPHORUS 4.1 mg/dl (2.5-4.9)
[2017-01-04] MEDS: FENOFIBRATE 145 MG TAB PO SCH (09:24)
[2017-01-04] MEDS: CHOLECALCIFEROL 2,000 UNIT CAP PO SCH (09:24)
[2017-01-04] MEDS: FISH OIL 1,000 MG CAP PO SCH (09:24)
[2017-01-04] MEDS: ASPIRIN 81 MG TAB PO SCH (09:25)
[2017-01-04] MEDS: CLOPIDOGREL 75 MG TAB PO SCH (09:25)
[2017-01-04] MEDS: SOD CHLORIDE 0.9% 1,000 ML IV SCH ×3 (13:30→14:14)
--- NOTE | 2017-01-04 13:35 | PN ---
Date/Time of Note Date/Time of Note DATE: 01/04/17 TIME: 13:12 Assessment/Plan VTE Prophylaxis VTE Prophylaxis Intervention: ambulation, SCD's Lines/Catheters IV Catheter Type (from [facility]): Saline Lock Urinary Cath still in place: No Assessment/Plan Assessment/Plan 31-year-old male with: 1. Syncopal episode, unclear etiology, there is also reported of possible seizure activity. Patient has no previous history of seizures but has been reporting episodes of palpitations that requires him to almost vagal from what he is describing for the symptoms to go away and also episodes where he skips beats as he describes it. He is on telemetry being monitored. Cardiology is following. 2D echocardiogram within normal. Electrolytes stable. Cardiac enzymes negative. We are holding all beta-blockers and blood pressure medications. Orthostatics negative last night. CTA chest negative for pulmonary embolus or dissection. CTA head and Neck and MRI brain pending to complete neurology workup. Will do EEG if needed 2. Episode of bradycardia with heart rate down to 30s, discontinue beta blockers. Continue to observe. Thyroid function testing within normal. Carotid ultrasound within normal limits. 3. Coronary artery disease, status post stent placement approximately 5 weeks ago. Continue aspirin and Plavix. 4. Hyperlipidemia: Continue statin therapy Prophylaxis: SCDs to lower extremity for DVT prophylaxis, Pepcid for GI prophylaxis Disposition: Monitoring for any arrhythmias, replete electrolytes, complete neurology workup, if any syncopal episode in house or witnessed seizures, will have neurology involved inpatient otherwise referral outpatient. Likely to need event monitoring as an outpatient if no etiology found to this episode of syncope while inpatient. Subjective 24 Hr Interval Summary Free Text/Dictation Patient doing well this morning, overnight he had an episode of lightheadedness was feeling palpitations and some pressure in his chest, telemetry monitoring and EKG along with vital signs were all within normal. The episode resolved this morning is back to baseline. So far cardiac and neurological workup were negative. He also had MRI of his brain with multiple level disc disease but no acute findings. We will complete the neurological workup today with MRI brain CT angiogram head and neck. Then patient can be referred to neurology as an outpatient if needed and or psychiatry. It is suspected that he may have anxiety disorder. Patient is also a regular and moderate to heavy marijuana user. Exam/Review of Systems Vital Signs Vitals Vital Signs Date Time Temp Pulse Resp B/P Pulse Ox O2 Delivery O2 Flow Rate FiO2 01/04/17 12:21 93 01/04/17 11:22 97.9 18 122/76 97 01/03/17 00:56 Room Air Intake and Output 01/03/17 01/03/17 01/04/17 15:00 23:00 07:00 Intake Total 1050 ml 200 ml Balance 1050 ml 200 ml Exam Constitutional: alert, oriented, well developed Respiratory: clear to auscultation, normal air movement Cardiovascular: nl pulses, regular rate and rhythm Gastrointestinal: non-tender, soft Musculoskeletal: nl extremities to inspection Extremities: normal pulses Neurological: MEDICAL ASSISTANT PER DIEM II-XII intact, nl mental status, nl speech, nl strength Results Result Diagram: 01/03/17 0303 01/04/17 0557 Results 24 hrs Laboratory Tests Test 01/04/17 05:57 Sodium Level 143 Potassium Level 4.1 Chloride Level 108 Carbon Dioxide Level 26 Anion Gap 13 # Blood Urea Nitrogen 17 Creatinine 1.36 H Glucose Level 88 Calcium Level 9.3 Phosphorus Level 4.1 Magnesium Level 2.0 Imaging Free Text/Dictation Echocardiogram Report Patient Name: JESSICA SHAY Gender: Male Date: 1985 Study Date: 03-Jan-2017 Estimating Engineer: KARINA Location: I Ref. Physician: ALEXUS IYER Quality: Technically Difficult Study Procedures: Transthoracic echocardiogram with 2D, M-Mode, and Doppler examination, no subcostal images. Indications: Syncope, history of stent. 2D/M Mode Doppler Measurement Value Normal Ranges Measurement Value Normal Ranges AoR Diam MM 2.7 cm AV Peak Nick 1.1 m/sec ACS MM 2.2 cm AV Peak PG 4.4 mmHg LVIDd 2D 4.7 3.5 - 5.6 cm LVOT Peak Nick 1.0 m/sec LVIDs 2D 3.1 2.1 - 4.1 cm LVOT Peak PG 3.9 mmHg LVPWd 2D 1.4 0.6 - 1.1 cm MV E Peak Nick 0.9 m/sec IVSd 2D 1.3 0.6 - 1.1 cm MV A Peak Nick 0.3 m/sec EDV 2D 104.0 cm3 MV E/A 3.3 ESV 2D 28.7 cm3 MV Decel Time 220 msec LA Dimen 2D 3.8 2.3 - 4.0 cm MV Decel [place] 4 MV E/A 3.3 PV Peak Nick 1.0 m/sec PV Peak PG 4.0 mmHg Findings Left Ventricle: Normal left ventricular systolic function. Normal left ventricular cavity size. Mild concentric left ventricular hypertrophy. Ejection fraction is visually estimated at 65 %. Tissue Doppler/Mitral Doppler indices are within normal limits. E/E`=6. Right Ventricle: Normal right ventricular size. Left Atrium: The left atrium is normal in size. Right Atrium: The right atrium is normal in size. Atrial Septum: Normal atrial septum. Mitral Valve: Normal appearance of the mitral valve. No mitral valve regurgitation is seen. Aortic Valve: Normal appearance of the aortic valve. No significant aortic stenosis or insufficiency. Tricuspid Valve: Normal appearance of the tricuspid valve. No evidence of tricuspid regurgitation. Pulmonic Valve: Normal pulmonic valve appearance. No evidence of pulmonic regurgitation. Pericardium: Normal pericardium with no significant pericardial effusion. No pleural effusion noted. Aorta: Normal aortic root. IVC: The IVC is not well visualized. Pulmonary Artery: Normal pulmonary artery size. Conclusions 1. Normal left ventricular systolic function. Normal left ventricular cavity size. Mild concentric left ventricular hypertrophy. Ejection fraction is visually estimated at 65 %. Tissue Doppler/Mitral Doppler indices are within normal limits. E/E`=6. 2. Normal appearance of the mitral valve. No mitral valve regurgitation is seen. 3. Normal appearance of the aortic valve. No significant aortic stenosis or insufficiency. 4. Normal appearance of the tricuspid valve. No evidence of tricuspid regurgitation. 5. Normal pulmonic valve appearance. No evidence of pulmonic regurgitation. 6. The IVC is not well visualized. Electronically Signed By: Shadi Palafox 03-Jan-2017 12:10:30 -0700 Medications Medications Current Medications Acetaminophen/ Hydrocodone Bitart ([place] (5/325)) 1 tab Q6H PRN PO PAIN Last administered on 01/03/17t 20:58; Admin Dose 1 TAB; Start 01/03/17 at 01:30 Acetaminophen (Tylenol Tab) 650 mg Q6H PRN PO PAIN AND OR ELEVATED TEMP; Start 01/03/17 at 01:30 Ondansetron HCl (Zofran Inj) 4 mg Q6H PRN IV NAUSEA AND/OR VOMITING; Start at 01:30 Aspirin (Aspirin) 81 mg DAILY PO Last administered on 01/04/17 09:25; Admin Dose 81 MG; Start 01/03/17 at 09:00 Atorvastatin Calcium (Lipitor) 40 mg HS PO Last administered on 01/03/17 20: 57; Admin Dose 40 MG; Start 01/03/17 at 21:00 Cholecalciferol (Vitamin D) 2,000 unit DAILY PO Last administered on 09:24; Admin Dose 2,000 UNIT; Start 01/03/17 at 09:00 Fenofibrate (Tricor) 145 mg DAILY PO Last administered on 01/04/17 09:24; Admin Dose 145 MG; Start 01/03/17 at 09:00 Fish Oil (Fish Oil) 1,000 mg DAILY PO Last administered on 01/04/17 09:24; Admin Dose 1,000 MG; Start 01/03/17 at 09:00 Clopidogrel Bisulfate (plaVIX) 75 mg DAILY PO Last administered on 01/04/17 09:25; Admin Dose 75 MG; Start 01/03/17 at 11:30 KOBI IYER Jan 04, 2017 13:35
--- NOTE | 2017-01-04 13:48 | CONS ---
Date/Time of Note Date/Time of Note DATE: 01/04/17 TIME: 13:43 Assessment/Plan Assessment/Plan Additional Assessment/Plan Syncope versus seizure CAD with history of PCI November 2016 Preserved ejection fraction Sinus bradycardia -Telemetry reviewed with sinus bradycardia as low as 37 bpm. Patient denies symptoms with activity or ambulation. Agree with holding AV susan blocking agents. Carotid ultrasound is negative, CT brain with no significant abnormalities. In discussion with patient, he does admit to frequent marijuana use secondary to his back pain. He does admit to other illicit drug use but he claims he stopped approximately 1-1/2 years ago. It is unclear the etiology of his symptoms, also given patient with frequent marijuana use, this could be a contributing factor. We will continue telemetry monitoring, creatinine slightly increased compared to yesterday, encourage fluids. Would consider other non-narcotic medication as well to assist with pain (patient currently on [place]). Consultation Date/Type/Reason Admit Date/Time Jan 02, 2017 at 23:24 Initial Consult Date 01/03/17 Type of Consultation: cv Referring Provider: KOBI IYER 24 HR Interval Summary Free Text/Dictation Patient complains of episode of lightheadedness while lying in bed. Denies palpitations or chest pain currently. Denies symptoms with ambulation. Exam/Review of Systems Vital Signs Vitals Vital Signs Date Time Temp Pulse Resp B/P Pulse Ox O2 Delivery O2 Flow Rate FiO2 01/04/17 12:21 93 01/04/17 11:22 97.9 18 122/76 97 01/03/17 00:56 Room Air Intake and Output 01/03/17 01/03/17 01/04/17 15:00 23:00 07:00 Intake Total 1050 ml 200 ml Balance 1050 ml 200 ml Exam No apparent distress Constitutional: alert, oriented Head: normocephalic Respiratory: other (Coarse breath sounds bilaterally, no wheezing) Cardiovascular: other (S1-S2 heard), regular rate and rhythm Gastrointestinal: bowel sounds, non-tender, soft Extremities: other (No edema) Results Result Diagram: 01/03/17 0303 01/04/17 0557 Results 24 hrs Laboratory Tests Test 01/04/17 05:57 Sodium Level 143 Potassium Level 4.1 Chloride Level 108 Carbon Dioxide Level 26 Anion Gap 13 # Blood Urea Nitrogen 17 Creatinine 1.36 H Glucose Level 88 Calcium Level 9.3 Phosphorus Level 4.1 Magnesium Level 2.0 Medications Medications Current Medications Acetaminophen/ Hydrocodone Bitart ([place] (5/325)) 1 tab Q6H PRN PO PAIN Last administered on 01/03/17 20:58; Admin Dose 1 TAB; Start 01/03/17 at 01:30 Acetaminophen (Tylenol Tab) 650 mg Q6H PRN PO PAIN AND OR ELEVATED TEMP; Start 01/03/17 at 01:30 Ondansetron HCl (Zofran Inj) 4 mg Q6H PRN IV NAUSEA AND/OR VOMITING; Start at 01:30 Aspirin (Aspirin) 81 mg DAILY PO Last administered on 01/04/17 09:25; Admin Dose 81 MG; Start 01/03/17 at 09:00 Atorvastatin Calcium (Lipitor) 40 mg HS PO Last administered on 01/03/17 20: 57; Admin Dose 40 MG; Start 01/03/17 at 21:00 Cholecalciferol (Vitamin D) 2,000 unit DAILY PO Last administered on 09:24; Admin Dose 2,000 UNIT; Start 01/03/17 at 09:00 Fenofibrate (Tricor) 145 mg DAILY PO Last administered on 01/04/17 09:24; Admin Dose 145 MG; Start 01/03/17 at 09:00 Fish Oil (Fish Oil) 1,000 mg DAILY PO Last administered on 01/04/17 09:24; Admin Dose 1,000 MG; Start 01/03/17 at 09:00 Clopidogrel Bisulfate 75 mg 75 mg DAILY PO Last administered on 01/04/17 09: 25; Admin Dose 75 MG; Start 01/03/17 at 11:30 Sodium Chloride (NS) 1,000 ml @ 100 mls/hr Q10H IV ; Start 01/04/17 at 13:30 Lamberto Gray DO Jan 04, 2017 13:48
[2017-01-04] MEDS ORDERED: SOD CHLORIDE 0.9% 500 ML IV ONE (14:00)
[2017-01-04] MEDS ORDERED: IOHEXOL 100 ML ONE (17:41)
[2017-01-04] MEDS ORDERED: SOD CHLORIDE 0.9% 100 ML ONE (17:41)
[2017-01-04] MEDS: ATORVASTATIN 40 MG TAB PO SCH (20:39)
--- NOTE | 2017-01-04 21:54 | RADRPT ---
PROCEDURE: MR Brain without contrast. CLINICAL INDICATION: Right lower extremity weakness. Syncope. TECHNIQUE: An MRI of the brain was performed on a high-resolution MR scanner utilizing the followi ng sequences: Sagittal and axial T1 weighted, axial T2 weighted, axial FLAIR, coronal GRE, and axial diffusion weighted with ADC mapping. Images were reviewed high-resolution PACS workstation. No con trast was administered. COMPARISON: None FINDINGS: No high signal abnormalities are seen on the diffusion-weighted images to suggest the presence of ac wainwright ischemia or recent infarct. There is no evidence of intracranial hemorrhage, mass effect, or mi dline shift. No extra-axial fluid collections are seen. The signal intensity is normal the brainst em and cerebellum. No hypointense signal abnormalities are seen on the GRE images to suggest the pre sence of blood degradation products. Normal flow voids are visible in the proximal intracranial art eries and dural sinuses, indicating patency. The visualized paranasal sinuses are grossly clear. IMPRESSION: 1. No evidence of acute infarct. 2. Unremarkable brain MRI without contrast. RPTAT: HHO .Sridevi Cordova MD, Date Time Electronically viewed and signed by .Sridevi Cordova MD, MD on 01/04/2017 21:53 .O/
--- NOTE | 2017-01-04 22:00 | RADRPT ---
PROCEDURE: CTA head and neck CLINICAL INDICATION: Seizures. Head trauma. Evaluate aneurysm or vascular malformation. TECHNIQUE: The study was performed utilizing a multi-slice multidetector CT scanner. Direct thin s ection helical 0.625 mm axial sections were obtained through the head and neck after the uneventful administration of 100 cc of Omnipaque 350 nonionic intravenous contrast material. Coronal and sagit donya as well as maximal intensity projection reformations were obtained. 3-D images were made. The i mages were reviewed on a PACS workstation. The total CTDIvol is 74.25, and 17.45 mGy and the DLP is 710.09 mGy-cm. One or more of the following dose reduction techniques were used: Automated exposure control. Adjustment of the mA and/or kV according to patient size. Use of iterative reconstruction technique. COMPARISON: CTA chest 01/03/2017 . FINDINGS: CTA NECK: The origins of the great vessels off the aortic arch are patent and normal in caliber wi thout significant stenosis. The common carotid arteries, carotid bulbs, and internal carotid arteri es are normal in appearance without significant atherosclerotic plaque or stenosis. The vertebral a rteries are also patent and normal in caliber bilaterally. There is no evidence of a hemodynamicall y significant stenosis or dissection. CTA BRAIN: The internal carotid arteries are patent and normal in caliber without significant ather osclerotic plaque. Similarly, the middle cerebral arteries and anterior cerebral arteries are paten t and normal in caliber. The intracranial vertebral arteries, basilar artery, and posterior cerebra l arteries are also patent and normal in caliber without significant atherosclerotic plaque. No ane urysm or vascular malformation is identified. IMPRESSION: 1. No intracranial arterial occlusion or stenosis. 2. No cerebral aneurysms or vascular malformations. 3. Widely patent extracranial carotid and vertebral arteries with no dissection. NASCET CAROTID STENOSIS CRITERIA (distal normal appearing ICA as denominator for measurement): 0%-no ne, 1-49%-mild, 50-70%-moderate, 70-89%-severe, 90-99%-critical. RPTAT: HHO .Sridevi Cordova MD, MD Date Time Electronically viewed and signed by .Sridevi Cordova MD, on 01/04/2017 21:59 .O/
[2017-01-05] VITALS (9 sets, daily range): BP systolic 116–132; BP diastolic 62–75; PULSE 53–78; RESP 18–20
[2017-01-05] MEDS: SOD CHLORIDE 0.9% 1,000 ML IV SCH (01:34)
[2017-01-05 07:38] LABS: BASOPHIL # 0.1 10^3/ul (0.0-0.1); BASOPHILS % 0.5 % (0.0-2.0); EOSINOPHILS # 0.2 10^3/ul (0.0-0.5); EOSINOPHILS % 1.8 % (0.0-7.0); HEMATOCRIT 46.5 % (42.0-52.0); HEMOGLOBIN 15.1 g/dl (14.0-18.0); LYMPHOCYTES # 3.3 10^3/ul (0.8-2.9); LYMPHOCYTES % 26.8 % (15.0-51.0); MEAN CORPUSCULAR HEMOGLOBIN 30.4 pg (29.0-33.0); MEAN CORPUSCULAR HGB CONC 32.5 g/dl (32.0-37.0); MEAN CORPUSCULAR VOLUME 93.6 fl (82.0-101.0); MEAN PLATELET VOLUME 10.1 fl (7.4-10.4); MONOCYTE # 0.9 10^3/ul (0.3-0.9); MONOCYTES % 7.2 % (0.0-11.0); NEUTROPHIL # 7.7 10^3/ul (1.6-7.5); NEUTROPHILS % 63.3 % (39.0-77.0); PLATELET COUNT 338 10^3/UL (140-415); RED BLOOD COUNT 4.97 10^6/ul (4.70-6.10); RED CELL DISTRIBUTION WIDTH 12.1 % (11.5-14.5); WHITE BLOOD COUNT 12.2 10^3/ul (4.8-10.8)
[2017-01-05 08:20] LABS: MAGNESIUM 1.9 mg/dl (1.7-2.5); PHOSPHORUS 3.8 mg/dl (2.5-4.9)
[2017-01-05 08:35] LABS: CALCIUM 9.3 mg/dl (8.4-10.2); CREATININE 1.32 mg/dl (0.61-1.24); POTASSIUM 4.3 mmol/L (3.5-5.1)
[2017-01-05] MEDS: CLOPIDOGREL 75 MG TAB PO SCH (10:22)
[2017-01-05] MEDS: ASPIRIN 81 MG TAB PO SCH (10:22)
[2017-01-05] MEDS: CHOLECALCIFEROL 2,000 UNIT CAP PO SCH (10:22)
[2017-01-05] MEDS: FISH OIL 1,000 MG CAP PO SCH (10:23)
[2017-01-05] MEDS: FENOFIBRATE 145 MG TAB PO SCH (10:23)
--- NOTE | 2017-01-05 12:24 | PN ---
Date/Time of Note Date/Time of Note DATE: 01/05/17 TIME: 12:07 Assessment/Plan VTE Prophylaxis VTE Prophylaxis Intervention: SCD's Lines/Catheters IV [facility] [place] [facility] Urinary Cath still in place: No Assessment/Plan Assessment/Plan 31-year-old male with: 1. Syncopal episode, unclear etiology, there is also reported of possible seizure activity. Patient has no previous history of seizures but has been reporting episodes of palpitations that requires him to almost vagal from what he is describing for the symptoms to go away and also episodes where he skips beats as he describes it. He is on telemetry being monitored. Cardiology is following. 2D echocardiogram within normal. Electrolytes stable. Cardiac enzymes negative. We are holding all beta-blockers and blood pressure medications. Orthostatics negative over the past 3 days. CTA chest negative for pulmonary embolus or dissection. CTA head and Neck and MRI brain pending to complete neurology workup. We will refer to outpatient neurology if needed. Patient will need outpatient event monitoring per cardiology. 2. Episode of bradycardia with heart rate down to 30s, discontinue beta blockers. Continue to observe. Thyroid function testing within normal. Carotid ultrasound and MRA neck within normal limits. Outpatient Sleep study referral already made as outpatient per patient and his Mother,. 3. Coronary artery disease, status post stent placement approximately 5 weeks ago. Continue aspirin and Plavix. 4. Hyperlipidemia: Continue statin therapy Prophylaxis: SCDs to lower extremity for DVT prophylaxis, Pepcid for GI prophylaxis Disposition: Neurology workup negative so far, no signs of seizures, patient will be referred to outpatient neurology. We will discuss with cardiology, at this point no signs of arrhythmias, patient may need outpatient event monitoring. Subjective 24 Hr Interval Summary Free Text/Dictation Patient was stable heart rate, he reports episode of slight lightheadedness today after taking his medications, however on telemetry he remains in sinus rhythm in the 80s. Blood pressure stable. Neurology workup is negative. Patient will be discharged home today if okay with cardiology. He may have obstructive sleep apnea, he has been referred to a sleep apnea study already as an outpatient, also he will be referred for outpatient event monitoring. Exam/Review of Systems Vital Signs Vitals Vital Signs Date Time Temp Pulse Resp B/P Pulse Ox O2 Delivery O2 Flow Rate FiO2 01/05/17 11:36 98.6 67 20 125/75 97 01/03/17 00:56 Room Air Intake and Output 01/04/17 01/04/17 01/05/17 15:00 23:00 07:00 Intake Total 1900 ml 1500 ml Balance 1900 ml 1500 ml Exam Constitutional: alert, oriented, well developed Respiratory: clear to auscultation, normal air movement Cardiovascular: nl pulses, regular rate and rhythm Gastrointestinal: non-tender, soft Musculoskeletal: nl extremities to inspection Extremities: normal pulses, other (No edema, clubbing or cyanosis) Neurological: [employer] II-XII intact, nl mental status, nl speech, nl strength Results Result Diagram: 01/05/17 0635 01/05/17 0635 Results 24 hrs Laboratory Tests Test 01/05/17 06:35 White Blood Count 12.2 H Red Blood Count 4.97 Hemoglobin 15.1 Hematocrit 46.5 Mean Corpuscular Volume 93.6 Mean Corpuscular Hemoglobin 30.4 Mean Corpuscular Hemoglobin Concent 32.5 Red Cell Distribution Width 12.1 Platelet Count 338 Mean Platelet Volume 10.1 Neutrophils % 63.3 Lymphocytes % 26.8 Monocytes % 7.2 Eosinophils % 1.8 Basophils % 0.5 Nucleated Red Blood Cells % 0.0 Neutrophils # 7.7 H Lymphocytes # 3.3 H Monocytes # 0.9 Eosinophils # 0.2 Basophils # 0.1 Nucleated Red Blood Cells # 0.0 Sodium Level 143 Potassium Level 4.3 Chloride Level 106 Carbon Dioxide Level 27 Anion Gap 14 Blood Urea Nitrogen 15 Creatinine 1.32 H Glucose Level 84 Calcium Level 9.3 Phosphorus Level 3.8 Magnesium Level 1.9 Imaging Free Text/Dictation PROCEDURE: MR Brain without contrast. CLINICAL INDICATION: Right lower extremity weakness. Syncope. TECHNIQUE: An MRI of the brain was performed on a high-resolution MR scanner utilizing the following sequences: Sagittal and axial T1 weighted, axial T2 weighted, axial FLAIR, coronal GRE, and axial diffusion weighted with ADC mapping. Images were reviewed high-resolution PACS workstation. No contrast was administered. COMPARISON: None FINDINGS: No high signal abnormalities are seen on the diffusion-weighted images to suggest the presence of acute ischemia or recent infarct. There is no evidence of intracranial hemorrhage, mass effect, or midline shift. No extra-axial fluid collections are seen. The signal intensity is normal the brainstem and cerebellum. No hypointense signal abnormalities are seen on the GRE images to suggest the presence of blood degradation products. Normal flow voids are visible in the proximal intracranial arteries and dural sinuses, indicating patency. The visualized paranasal sinuses are grossly clear. IMPRESSION: 1. No evidence of acute infarct. 2. Unremarkable brain MRI without contrast. RPTAT: HHO .Sridevi Cordova MD, MD Date Time Electronically viewed and signed by .Sridevi Cordova MD, MD on 01/04/2017 21:53 PROCEDURE: CTA head and neck CLINICAL INDICATION: Seizures. Head trauma. Evaluate aneurysm or vascular malformation. TECHNIQUE: The study was performed utilizing a multi-slice multidetector CT scanner. Direct thin section helical 0.625 mm axial sections were obtained through the head and neck after the uneventful administration of 100 cc of Omnipaque 350 nonionic intravenous contrast material. Coronal and sagittal as well as maximal intensity projection reformations were obtained. 3-D images were made. The images were reviewed on a PACS workstation. The total CTDIvol is 74.25, and 17.45 mGy and the DLP is 710.09 mGy-cm. One or more of the following dose reduction techniques were used: Automated exposure control. Adjustment of the mA and/or kV according to patient size. Use of iterative reconstruction technique. COMPARISON: CTA chest 01/03/2017 . FINDINGS: CTA NECK: The origins of the great vessels off the aortic arch are patent and normal in caliber without significant stenosis. The common carotid arteries, carotid bulbs, and internal carotid arteries are normal in appearance without significant atherosclerotic plaque or stenosis. The vertebral arteries are also patent and normal in caliber bilaterally. There is no evidence of a hemodynamically significant stenosis or dissection. CTA BRAIN: The internal carotid arteries are patent and normal in caliber without significant atherosclerotic plaque. Similarly, the middle cerebral arteries and anterior cerebral arteries are patent and normal in caliber. The intracranial vertebral arteries, basilar artery, and posterior cerebral arteries are also patent and normal in caliber without significant atherosclerotic plaque. No aneurysm or vascular malformation is identified. IMPRESSION: 1. No intracranial arterial occlusion or stenosis. 2. No cerebral aneurysms or vascular malformations. 3. Widely patent extracranial carotid and vertebral arteries with no dissection. Medications Medications Current Medications Acetaminophen/ Hydrocodone Bitart ([place] (5/325)) 1 tab Q6H PRN PO PAIN Last administered on 01/03/17 20:58; Admin Dose 1 TAB; Start 01/03/17 at 01:30 Acetaminophen (Tylenol Tab) 650 mg Q6H PRN PO PAIN AND OR ELEVATED TEMP; Start 01/03/17 at 01:30 Ondansetron HCl (Zofran Inj) 4 mg Q6H PRN IV NAUSEA AND/OR VOMITING; Start at 01:30 Aspirin (Aspirin) 81 mg DAILY PO Last administered on 01/05/17 10:22; Admin Dose 81 MG; Start 01/03/17 at 09:00 Atorvastatin Calcium (Lipitor) 40 mg HS PO Last administered on 01/04/17 20: 39; Admin Dose 40 MG; Start 01/03/17 at 21:00 Cholecalciferol (Vitamin D) 2,000 unit DAILY PO Last administered on 10:22; Admin Dose 2,000 UNIT; Start 01/03/17 at 09:00 Fenofibrate (Tricor) 145 mg DAILY PO Last administered on 01/05/17 10:23; Admin Dose 145 MG; Start 01/03/17 at 09:00 Fish Oil (Fish Oil) 1,000 mg DAILY PO Last administered on 01/05/17 10:23; Admin Dose 1,000 MG; Start 01/03/17 at 09:00 Clopidogrel Bisulfate (plaVIX) 75 mg DAILY PO Last administered on 01/05/17 10:22; Admin Dose 75 MG; Start 01/03/17 at 11:30 KOBI IYER Jan 05, 2017 12:24
--- NOTE | 2017-01-05 12:28 | PDOCDIS ---
Discharge Instructions CONDITION Patient Condition: Stable HOME CARE INSTRUCTIONS: Special Diet: CARDIAC ACTIVITY: Activity Restrictions: Slowly Increase Activity FOLLOW UP/APPOINTMENTS Follow-up Plan Follow-up with cardiology as an outpatient regarding outpatient event monitoring and also status post previous stent and known CAD Referral to neurology for syncope of unclear origin as an outpatient versus referral to psychiatry for anxiety disorder KOBI IYER Jan 05, 2017 12:28
--- NOTE | 2017-01-05 16:34 | CONS ---
Date/Time of Note Date/Time of Note DATE: 01/05/17 TIME: 16:32 Assessment/Plan Assessment/Plan Additional Assessment/Plan Syncope versus seizure CAD with history of PCI November 2016 Preserved ejection fraction Sinus bradycardia -Heart rate trend remains stable. Blood pressure trend within normal limits. Continue aspirin and Plavix therapy, statin therapy if no contraindication. DC planning Consultation Date/Type/Reason Admit Date/Time Jan 02, 2017 at 23:24 Initial Consult Date 01/03/17 Type of Consultation: cv Referring Provider: KOBI IYER 24 HR Interval Summary Free Text/Dictation Feeling better today, one episode of dizziness in the morning after eating breakfast but not with activity. Denies chest pain or shortness of breath Exam/Review of Systems Vital Signs Vitals Vital Signs Date Time Temp Pulse Resp B/P Pulse Ox O2 Delivery O2 Flow Rate FiO2 01/05/17 16:25 68 01/05/17 11:36 98.6 20 125/75 97 01/03/17 00:56 Room Air Intake and Output 01/04/17 01/04/17 01/05/17 15:00 23:00 07:00 Intake Total 1900 ml 1500 ml Balance 1900 ml 1500 ml Exam No apparent distress Constitutional: alert, oriented Head: normocephalic Respiratory: clear to auscultation, normal air movement Cardiovascular: other (S1-S2 heard), regular rate and rhythm Gastrointestinal: bowel sounds, non-tender, soft Extremities: other (No edema) Results Result Diagram: 01/05/17 0635 01/05/17 0635 Results 24 hrs Laboratory Tests Test 01/05/17 06:35 White Blood Count 12.2 H Red Blood Count 4.97 Hemoglobin 15.1 Hematocrit 46.5 Mean Corpuscular Volume 93.6 Mean Corpuscular Hemoglobin 30.4 Mean Corpuscular Hemoglobin Concent 32.5 Red Cell Distribution Width 12.1 Platelet Count 338 Mean Platelet Volume 10.1 Neutrophils % 63.3 Lymphocytes % 26.8 Monocytes % 7.2 Eosinophils % 1.8 Basophils % 0.5 Nucleated Red Blood Cells % 0.0 Neutrophils # 7.7 H Lymphocytes # 3.3 H Monocytes # 0.9 Eosinophils # 0.2 Basophils # 0.1 Nucleated Red Blood Cells # 0.0 Sodium Level 143 Potassium Level 4.3 Chloride Level 106 Carbon Dioxide Level 27 Anion Gap 14 Blood Urea Nitrogen 15 Creatinine 1.32 H Glucose Level 84 Calcium Level 9.3 Phosphorus Level 3.8 Magnesium Level 1.9 Medications Medications Current Medications Acetaminophen/ Hydrocodone Bitart ([place] (5/325)) 1 tab Q6H PRN PO PAIN Last administered on 01/03/17 20:58; Admin Dose 1 TAB; Start 01/03/17 at 01:30 Acetaminophen (Tylenol Tab) 650 mg Q6H PRN PO PAIN AND OR ELEVATED TEMP; Start 01/03/17 at 01:30 Ondansetron HCl (Zofran Inj) 4 mg Q6H PRN IV NAUSEA AND/OR VOMITING; Start at 01:30 Aspirin (Aspirin) 81 mg DAILY PO Last administered on 01/05/17 10:22; Admin Dose 81 MG; Start 01/03/17 at 09:00 Atorvastatin Calcium (Lipitor) 40 mg HS PO Last administered on 01/04/17 20: 39; Admin Dose 40 MG; Start 01/03/17 at 21:00 Cholecalciferol (Vitamin D) 2,000 unit DAILY PO Last administered on 10:22; Admin Dose 2,000 UNIT; Start 01/03/17 at 09:00 Fenofibrate (Tricor) 145 mg DAILY PO Last administered on 01/05/17 10:23; Admin Dose 145 MG; Start 01/03/17 at 09:00 Fish Oil (Fish Oil) 1,000 mg DAILY PO Last administered on 01/05/17 10:23; Admin Dose 1,000 MG; Start 01/03/17 at 09:00 Clopidogrel Bisulfate (plaVIX) 75 mg DAILY PO Last administered on 01/05/17 10:22; Admin Dose 75 MG; Start 01/03/17 at 11:30 Lamberto Gray DO Jan 05, 2017 16:34
== END 2017-01-05 16:28 | disposition home or self-care (01) ==
LOC: E/R 20:12 → TEL 23:24
PROVIDERS: ADMIT Internal Medicine; ATTEND Internal Medicine
DX: R55 Syncope and collapse (principal); I25.10 Atherosclerotic heart disease of native coronary artery without angina pectoris; Z95.5 Presence of coronary angioplasty implant and graft; Z87.891 Personal history of nicotine dependence; R00.1 Bradycardia, unspecified; E78.5 Hyperlipidemia, unspecified; R53.1 Weakness; M54.9 Dorsalgia, unspecified
CPT/HCPCS: 36415; 70450; 70496; 70498; 70551; 71010; 71275; 72146; 72148; 80048; 80053; 80307; 82550; 82553; 83735; 83880; 84100; 84439; 84443; 84484; 85025; 85610; 85730; 93005; 93306; 93880; J7030; J7040; Q9967; Z7500; Z7502; Z7610; G0378